=== PATIENT | male | born 2000 | race Caucasian/White ===

== ENCOUNTER 2021-03-29 07:57 | Day surgery (SDC) | payer OTHER, SELFPAY ==
[2021-03-29] VITALS (7 sets, daily range): BP systolic 128–154; BP diastolic 76–92; PULSE 68–92; RESP 16; TEMP 36.1–37.3; O2SAT 98–100; BMI 20.9
[2021-03-29] MEDS: Lactated Ringers 1,000 ML 100 ML IV ×2 (08:31→11:45)
[2021-03-29] MEDS: Cefazolin 2 GM in 0.9% Normal Saline 100 ML IV (09:42)
--- NOTE | 2021-03-29 09:45 | RAD_ITS ---
STUDY: X-RAY - RIGHT ANKLE REASON FOR EXAM: Male, 21 years old. FX TECHNIQUE: 8 fluoroscopic intraoperative view(s) of the ankle. COMPARISON: None. FINDINGS: 8 intraoperative fluoroscopic spot films of a right angle ORIF. There is a transverse nondisplaced fracture of the distal fibula. Distal tibial fracture is poorly characterized. Alignment is anatomic. Hardware appears intact. RAD/Ankle 2 Views IMPRESSION: 8 intraoperative fluoroscopic spot films of a right angle ORIF. See operative report for full details. Electronically Signed: Eduard Burks MD at 13:23 EDT Tel , Service support ,
--- NOTE | 2021-03-29 12:25 | PCM.DC ---
Discharge Instructions Follow Up Care Test Results: Test results from this visit will be discussed in further detail at your follow-up appointment, if applicable. Discharge Plan Admission Primary Reason for Your Visit: Right ankle ORIF Attending Provider: Jamar Zepeda Primary Care Provider: Sarah Mei Instructions Additional Instructions / Restrictions: Maintain splint until follow-up. Keep it clean dry and intact. Ice and elevate operative extremity 20 minutes on 20 minutes off until follow-up Nonweightbearing operative extremity Discharge Orders/Prescriptions Prescriptions: No Action oxycodone-acetaminophen 5-325 mg tablet 1 - 2 tab PO Q4H PRN PRN (Reason: Pain) RF: 0 ibuprofen 200 mg Tablet 200 mg PO Q6H PRN (Reason: Pain) RF: 0 Referrals / Follow Up: Jamar Zepeda DO [STAFF PHYSICIAN] - Within 2 Weeks Sarah Mei PA-C [Primary Care Provider] - Disposition Disposition (needs filled in before D/C Order can be placed): Home, Self Care
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
== END 2021-03-29 13:31 | disposition home or self-care (01) ==
LOC: SDC 07:58 → AC 08:00
PROVIDERS: PCP Family Medicine; Referring Provider Student in an Organized Health Care Education/Training Program; Visit Provider Student in an Organized Health Care Education/Training Program
PROC: (CPT 27823; principal; 2021-03-29 09:10)
DX: S82.851A Displaced trimalleolar fracture of right lower leg, initial encounter for closed fracture (principal); F17.220 Nicotine dependence, chewing tobacco, uncomplicated; V86.56XA Driver of dirt bike or motor/cross bike injured in nontraffic accident, initial encounter; Y93.55 Activity, bike riding; Y92.89 Other specified places as the place of occurrence of the external cause; Y99.8 Other external cause status
CPT/HCPCS: 27823; 64447; 73600; 76000; 87426; C1713; J7120; J2405